=== PATIENT | female | born 1980 | race African-American/Black ===

== ENCOUNTER 2020-09-30 19:04 | Emergency (ER) | payer OTHER ==
[~2020-09-30] VITALS: Ht 149.9 cm; Wt 35.4 kg
[2020-09-30] MEDS ORDERED: DEXAMETHASONE SOD PHOSPHATE 4 MG/ML VIAL IM ONE (20:30)
--- NOTE | 2020-09-30 21:00 | NUR ---
RADIOLOGY AT BEDSIDE
[2020-09-30] MEDS ORDERED: DEXAMETHASONE SOD PHOSPHATE 10 MG/ML VIAL ONE (21:05)
[2020-09-30] MEDS ORDERED: ACETAMINOPHEN ES 500 MG TABLET ONE (21:21)
[2020-09-30] MEDS ORDERED: ONDANSETRON 4 MG TAB.RAPDIS ONE (21:21)
[2020-09-30] MEDS ORDERED: ONDANSETRON 4 MG TAB.RAPDIS SL ONE (21:30)
[2020-09-30] MEDS ORDERED: ACETAMINOPHEN 325 MG TABLET PO ONE (21:30)
--- NOTE | 2020-09-30 21:33 | NUR ---
PARVEENID SWABBED, SENT TO LAB.
--- NOTE | 2020-09-30 21:45 | NUR ---
Patient discharged to home in stable condition. Written and verbal after care instructions given. Patient verbalizes understanding of instruction and RX. RR even and unlabored. vss.
[2020-09-30 21:56] VITALS: BP 127/83
== END 2020-09-30 21:56 | disposition home or self-care (01) ==
LOC: ER 19:11
DX: J40 Bronchitis, not specified as acute or chronic (principal); R07.81 Pleurodynia; Z93.0 Tracheostomy status; Z20.828 Contact with and (suspected) exposure to other viral communicable diseases
CPT/HCPCS: 71045; 87426; 96372; 99284; C9803; J1100; Q0162

== ENCOUNTER 2020-12-09 18:14 | Emergency (ER) | payer OTHER ==
[~2020-12-09] VITALS: Ht 149.9 cm; Wt 36.3 kg
--- NOTE | 2020-12-09 18:20 | NUR ---
bib by mother, productive cough for weeks. chest pain, dull achy x 1 week. pt has a trache which is capped. vs checked. iv access started blood draw done sent to lab. seen by
[2020-12-09 19:09] LABS: BASOPHILS % (AUTO) 0.4 % (0.0-2.0); EOSINOPHILS % (AUTO) 1.1 % (0.0-6.0); HEMATOCRIT 44 % (33-45); HEMOGLOBIN 14.8 g/dL (11.5-14.8); LYMPHOCYTES # (AUTO) 1.6 /CMM (0.8-4.8); LYMPHOCYTES % (AUTO) 25.6 % (20.0-44.0); MEAN CORPUSCULAR HGB CONC 34 g/dl (31.0-36.0); MEAN CORPUSCULAR VOLUME 93 fL (82-100); MONOCYTES # (AUTO) 0.5 /CMM (0.1-1.30); MONOCYTES % (AUTO) 7.5 % (2.0-12.0); NEUTROPHILS % (AUTO) 65.4 % (43.0-81.0); PLATELET COUNT (AUTO) 284 /CMM (150-450); RED BLOOD CELL COUNT(AUTO) 4.73 MIL/uL (4.0-5.2); WHITE BLOOD COUNT (AUTO) 6.1 K/uL (4.3-11.0)
[2020-12-09] MEDS ORDERED: AZITHROMYCIN 250 MG TABLET ONE (19:14)
--- NOTE | 2020-12-09 19:16 | NUR ---
covid pcr and antigen collected and influenza collected sent to lab
--- NOTE | 2020-12-09 19:20 | NUR ---
RT AT BEDSIDE FOR TRACHEAL SUCTIONING
[2020-12-09] MEDS ORDERED: IPRATROPIUM NEB FS 0.5 MG/2.5 ML AMPUL.NEB ONE (19:25)
[2020-12-09] MEDS ORDERED: ALBUTEROL FS 2.5 MG/0.5 ML VIAL.NEB ONE (19:25)
--- NOTE | 2020-12-09 19:29 | NUR ---
urine collected sent to lab
[2020-12-09] MEDS ORDERED: AZITHROMYCIN 250 MG TABLET PO ONE (19:30)
[2020-12-09] MEDS ORDERED: ALBUTEROL FS 2.5 MG/0.5 ML VIAL.NEB NEB ONE (19:30)
[2020-12-09] MEDS ORDERED: IPRATROPIUM NEB FS 0.5 MG/2.5 ML AMPUL.NEB NEB ONE (19:30)
[2020-12-09 19:33] LABS: BILIRUBIN,URINE Negative (NEGATIVE); COLOR,URINE YELLOW (YELLOW); LEUKOCYTE ESTERASE ,URINE Large (NEGATIVE); NITRITE, URINE Negative (NEGATIVE); PROTEIN,URINE Negative (NEGATIVE); UGLUCOSE Negative (NEGATIVE); UROBILINOGEN,URINE 0.2 EU/dL (0.2)
[2020-12-09 19:34] LABS: ALANINE AMINOTRANSFERASE 18 U/L (12-78); ALBUMIN 3.9 g/dL (3.4-5.0); ALKALINE PHOSPHATASE 48 U/L (46-116); ASPARTATE AMINOTRANSFERASE 18 U/L (15-37); B-TYPE NATRIURETIC PEPTIDE 102 PG/ML (0-125); BILIRUBIN,TOTAL 0.9 mg/dL (0.2-1.0); CALCIUM, SERUM 8.6 mg/dL (8.5-10.1); CARBON DIOXIDE 28 mmol/L (21-32); CHLORIDE 102 mmol/L (98-107); CREATININE 0.7 mg/dL (0.6-1.3); GLUCOSE 66 mg/dL (74-106); POTASSIUM 3.5 mmol/L (3.5-5.1); SODIUM SERUM 137 mmol/L (136-145); UREA NITROGEN, BLOOD 11 mg/dL (7-18)
--- NOTE | 2020-12-09 19:34 | NUR ---
RT AT BEDSIDE FOR BREATHING TREATMENT
[2020-12-09 19:50] LABS: BACTERIA,URINE Few /HPF (None Seen); RBC,URINE 0-2 /HPF (0-2)
[2020-12-09 19:52] LABS: YEAST,URINE Few /HPF (None Seen)
[2020-12-09 19:54] LABS: D-DIMER < 0.19 mg/L(FEU (0.17-0.50)
[2020-12-09 20:02] LABS: C-REACTIVE PROTEIN 0.8 mg/dL (0.0-0.9); CREATINE KINASE, TOTAL 54 U/L (26-192); FERRITIN 65 ng/mL (8-388)
[2020-12-09] MEDS ORDERED: KETOROLAC TROMETHAMINE 15 MG/ML VIAL ONE (20:29)
--- NOTE | 2020-12-09 20:39 | NUR ---
MD AT BEDSIDE TO SPEAK WITH PATIENT REGARDING DISCHARGE. FAMILY MEMBER AT BEDSIDE AND PATIENT AGREES TO DISCHARGE.
[2020-12-09] MEDS ORDERED: ALBU2.5V38 NEB (20:47)
[2020-12-09] MEDS ORDERED: AZIT100S20 PO (20:49)
[2020-12-09] MEDS ORDERED: KETOROLAC TROMETHAMINE INJ 30 MG/ML VIAL IV ONE (21:00)
[2020-12-09 21:06] VITALS: BP 121/76
--- NOTE | 2020-12-09 21:06 | NUR ---
IV removed. Catheter intact and site benign. Pressure and 4x4 applied to site. No bleeding noted.
--- NOTE | 2020-12-09 21:06 | NUR ---
Patient discharged to home in stable condition. Written and verbal after care instructions given. Patient verbalizes understanding of instruction.
== END 2020-12-09 21:07 | disposition home or self-care (01) ==
LOC: ER 18:19
DX: R07.81 Pleurodynia (principal); J40 Bronchitis, not specified as acute or chronic; Z93.0 Tracheostomy status; Z20.822 Contact with and (suspected) exposure to COVID-19; R94.31 Abnormal electrocardiogram [ECG] [EKG]
CPT/HCPCS: 31720; 36415; 71046; 80053; 81001; 82550; 82728; 83605; 83615; 83880; 84145; 84484; 85025; 85378; 85385; 85730; 86140; 87086; 87106; 87426; 87804; 93005; 94640; 96374; 99285; C9803; J1885; U0003

== ENCOUNTER 2021-02-05 22:01 | Emergency (ER) | payer OTHER ==
[~2021-02-05] VITALS: Ht 149.9 cm; Wt 33.1 kg
[~2021-02-05 22:01] MED LIST: ALBU2.5V38 NEB; AZIT100S20 PO
[2021-02-05 22:08] VITALS: BP 135/98
--- NOTE | 2021-02-05 22:08 | NUR ---
BIB MOM FOR C/O MID STERNAL CP 04/27 NON- RADIATING, H/A, SOB AND COUGH SINCE AM. PT HAS A TRACH IN PLACE, ON R/A, PER MOM SHE RECEIVED A DOSE OF BREATHIG TX AT HOME FOR SOB WITH SOME HELP. PT AMBULATORY TO BED 8, WAS PLACED ON A MONITOR . VSS. AFEBRILE. WILL CONT TO MONITOR ,
[2021-02-05] MEDS ORDERED: ALBU1.257 NEB (22:44)
[2021-02-05] MEDS ORDERED: AZIT250T PO (22:44)
== END 2021-02-05 23:30 | disposition home or self-care (01) ==
LOC: ER 22:03
DX: J20.9 Acute bronchitis, unspecified (principal); Z20.822 Contact with and (suspected) exposure to COVID-19; R07.81 Pleurodynia; Z93.0 Tracheostomy status
CPT/HCPCS: 99283; C9803; U0003

== ENCOUNTER 2021-04-02 18:03 | Emergency (ER) | payer OTHER ==
[~2021-04-02] VITALS: Ht 149.9 cm; Wt 34.0 kg
[~2021-04-02 18:03] MED LIST changes: +ALBU1.257 NEB; +AZIT250T PO
--- NOTE | 2021-04-02 18:20 | NUR ---
BIBMOM C/O SOB & CP. DENIES FEVER, BODY ACHES, N/V/D. PT AAOX4, VSS. RR EVEN & UNLABORED. AWAITING EVAL BY ERMD. WILL CONT TO MONITOR.
[2021-04-02] MEDS ORDERED: ALBUTEROL FS 2.5 MG/3 ML VIAL.NEB NEB ONE (18:30)
[2021-04-02] MEDS ORDERED: AZIT250T PO (18:37)
[2021-04-02] MEDS ORDERED: ALBU2.5V38 NEB (18:37)
[2021-04-02] MEDS ORDERED: ALBUTEROL FS 2.5 MG/3 ML VIAL.NEB ONE (19:16)
--- NOTE | 2021-04-02 19:19 | NUR ---
PATIENT RECEIVING BREATHING TX AT BEDSIDE
[2021-04-02 19:57] VITALS: BP 128/68
--- NOTE | 2021-04-02 19:58 | NUR ---
Patient discharged to home in stable condition. Rx and Written and verbal after care instructions given. Patient verbalizes understanding of instruction. Patient wheeled to car with no injuires.
== END 2021-04-02 19:59 | disposition home or self-care (01) ==
LOC: ER 18:05
DX: J40 Bronchitis, not specified as acute or chronic (principal); Z93.0 Tracheostomy status; Z79.899 Other long term (current) drug therapy

== ENCOUNTER 2021-06-08 13:41 | Emergency (ER) | payer OTHER ==
[~2021-06-08] VITALS: Ht 152.4 cm; Wt 34.0 kg
--- NOTE | 2021-06-08 13:55 | NUR ---
PT BIB MOTHER C/O PRESSURE LIKE CHEST PAIN W/ SOB X 2 DAYS. PT IS TACHYCARDIC GENERAL STORE MANAGER. AFEBRILE PT IS SATTING IN LOW 90'S. GOWNED AND PLACED ON MONITOR. AWAITING MD CAMPBELL. PT IS NOT VACCINATED W/ COVID. PER MOTHER, HER NIECE HAS FLU LIKE SYMPTOMS. AWAITNG MD CAMPBELL.
--- NOTE | 2021-06-08 14:08 | NUR ---
DR TRAMMELL AT BEDSIDE FOR EVAL.
[2021-06-08] MEDS ORDERED: DEXAMETHASONE SOD PHOSPHATE 10 MG/ML VIAL IV ONE (14:30)
[2021-06-08] MEDS ORDERED: CEFTRIAXONE 1GM BAG (ER ONLY) 50 ML IV ONE ×2 (14:30→14:37)
[2021-06-08] MEDS ORDERED: AZITHROMYCIN 500 MG in IV D5W 250 ML IV ONE (14:30)
[2021-06-08] MEDS ORDERED: DEXAMETHASONE SOD PHOSPHATE 10 MG/ML VIAL ONE (14:37)
--- NOTE | 2021-06-08 14:37 | NUR ---
RADIOLOGY AT BEDSIDE FOR CHEST XRAY
[2021-06-08 14:57] LABS: BASOPHILS % (AUTO) 0.2 % (0.0-2.0); EOSINOPHILS % (AUTO) 0.3 % (0.0-6.0); HEMATOCRIT 41 % (33-45); HEMOGLOBIN 13.5 g/dL (11.5-14.8); LYMPHOCYTES # (AUTO) 0.7 K/uL (0.8-4.8); LYMPHOCYTES % (AUTO) 8.6 % (20.0-44.0); MEAN CORPUSCULAR HGB CONC 33 g/dl (31.0-36.0); MEAN CORPUSCULAR VOLUME 93 fL (82-100); MONOCYTES # (AUTO) 0.7 K/uL (0.1-1.30); MONOCYTES % (AUTO) 7.8 % (2.0-12.0); NEUTROPHILS # (AUTO) 7.2 K/uL (1.8-8.9); NEUTROPHILS % (AUTO) 83.1 % (43.0-81.0); PLATELET COUNT (AUTO) 259 K/uL (150-450); RED BLOOD CELL COUNT(AUTO) 4.39 MIL/uL (4.0-5.2); WHITE BLOOD COUNT (AUTO) 8.6 K/uL (4.3-11.0)
[2021-06-08 15:17] LABS: ALBUMIN 3.5 g/dL (3.4-5.0); BILIRUBIN,TOTAL 0.6 mg/dL (0.2-1.0); CALCIUM, SERUM 8.3 mg/dL (8.5-10.1); CREATININE 0.7 mg/dL (0.6-1.3); TOTAL PROTEIN, SERUM 7.3 g/dL (6.4-8.2)
[2021-06-08 15:22] LABS: C-REACTIVE PROTEIN 0.6 mg/dL (0.0-0.9)
[2021-06-08 15:27] LABS: D-DIMER < 0.19 mg/L(FEU (0.17-0.50)
--- NOTE | 2021-06-08 15:42 | NUR ---
PAGED [facility].
[2021-06-08 16:04] LABS: POTASSIUM 2.8 mmol/L (3.5-5.1)
[2021-06-08] MEDS ORDERED: AZIT250T13 PO (16:17)
[2021-06-08] MEDS ORDERED: POTA20TA83 PO (16:18)
--- NOTE | 2021-06-08 16:19 | NUR ---
CALLED LAB MULTIPLE TIME FOR A RAPID COVID TEST KIT.
[2021-06-08] MEDS ORDERED: POTASSIUM CHLORIDE 20 MEQ TAB.PRT.SR PO ONE ×2 (16:30→17:21)
--- NOTE | 2021-06-08 17:48 | NUR ---
Patient discharged to home in stable condition. Written and verbal after care instructions given. Patient verbalizes understanding of instruction.IV removed. Catheter intact and site benign. Pressure and 4x4 applied to site. No bleeding noted.
[2021-06-08 17:50] VITALS: BP 108/70
== END 2021-06-08 17:51 | disposition home or self-care (01) ==
LOC: ER 13:48
DX: J40 Bronchitis, not specified as acute or chronic (principal); E87.6 Hypokalemia; Z93.0 Tracheostomy status; Z20.822 Contact with and (suspected) exposure to COVID-19
CPT/HCPCS: 71045; 80053; 82550; 82728; 83605; 83615; 84145; 85025; 85378; 85385; 85730; 86140; 87040 ×2; 87426; 93005; 96365; 96375; 99285; J0456; J0696; J1100; U0003; 36415; C9803; J7060

== ENCOUNTER 2021-10-21 17:22 | Emergency (ER) | payer OTHER ==
[~2021-10-21] VITALS: Ht 149.9 cm; Wt 32.7 kg
[~2021-10-21 17:22] MED LIST changes: -ALBU1.257 NEB; -ALBU2.5V38 NEB; -AZIT100S20 PO; -AZIT250T PO; +AZIT250T13 PO; +POTA20TA83 PO
--- NOTE | 2021-10-21 17:39 | NUR ---
TO ER BED 6, BIBFAMILY C/O SORETHROAT/SOB STARTED LAST NIGHT,HAS TRACH SINCE , AAOX3, CONNECTED TO MONITOR, FAMILY AT BEDSIDE, AWAITING MD CAMPBELL
--- NOTE | 2021-10-21 17:55 | NUR ---
SALINE LOCK ESTABLISHED AND BLOOD DRAWN
[2021-10-21] MEDS ORDERED: ALBUTEROL FS 2.5 MG/3 ML VIAL.NEB NEB ONE (18:30)
[2021-10-21] MEDS ORDERED: ALBUTEROL FS 2.5 MG/3 ML VIAL.NEB ONE (18:34)
[2021-10-21 19:09] LABS: BASOPHILS % (AUTO) 0.1 % (0.0-2.0); EOSINOPHILS % (AUTO) 0.8 % (0.0-6.0); HEMATOCRIT 42 % (33-45); HEMOGLOBIN 14.1 g/dL (11.5-14.8); LYMPHOCYTES # (AUTO) 0.7 K/uL (0.8-4.8); LYMPHOCYTES % (AUTO) 5.6 % (20.0-44.0); MEAN CORPUSCULAR HGB CONC 33 g/dl (31.0-36.0); MEAN CORPUSCULAR VOLUME 93 fL (82-100); MONOCYTES # (AUTO) 0.6 K/uL (0.1-1.30); MONOCYTES % (AUTO) 4.9 % (2.0-12.0); NEUTROPHILS # (AUTO) 10.9 K/uL (1.8-8.9); NEUTROPHILS % (AUTO) 88.6 % (43.0-81.0); PLATELET COUNT (AUTO) 283 K/uL (150-450); RED BLOOD CELL COUNT(AUTO) 4.55 MIL/uL (4.0-5.2); WHITE BLOOD COUNT (AUTO) 12.4 K/uL (4.3-11.0)
[2021-10-21 19:12] LABS: CALCIUM, SERUM 8.4 mg/dL (8.5-10.1); CREATININE 0.8 mg/dL (0.6-1.3); POTASSIUM 3.7 mmol/L (3.5-5.1)
[2021-10-21] MEDS ORDERED: DEXAMETHASONE SOD PHOSPHATE 4 MG in IV D5W 50 ML IV ONE (20:00)
[2021-10-21] MEDS ORDERED: IV NS 0.9% 1,000 ML BAG IV ONE (20:00)
[2021-10-21] MEDS ORDERED: CEFTRIAXONE 1 G in IV D5W 50 ML IV ONE (20:00)
[2021-10-21] MEDS ORDERED: CEFTRIAXONE 1GM BAG (ER ONLY) 50 ML IV ONE (20:01)
[2021-10-21] MEDS ORDERED: DEXAMETHASONE SOD PHOSPHATE 4 MG/ML VIAL ONE (20:02)
--- NOTE | 2021-10-21 20:35 | NUR ---
COVID ANTIGEN COLLECTED AND SENT TO LAB
[2021-10-21] MEDS ORDERED: AMOX400S5 PO (22:09)
[2021-10-21 22:43] VITALS: BP 95/57
--- NOTE | 2021-10-21 23:45 | NUR ---
Patient discharged to home in stable condition. Written and verbal after care instructions given. Patient verbalizes understanding of instruction. DC VIA W/C.
[2021-10-22] MEDS ORDERED: ALBU0.633 NEB (00:06)
== END 2021-10-21 22:45 | disposition home or self-care (01) ==
LOC: ER 17:27
DX: J02.9 Acute pharyngitis, unspecified (principal); Z20.822 Contact with and (suspected) exposure to COVID-19; Z93.0 Tracheostomy status
CPT/HCPCS: 36415; 71045; 80048; 85025; 87426; 94640; 96365; 96375; 99285; C9803; J0696; J1100; J7030; J7060

== ENCOUNTER 2022-01-24 10:56 | Emergency (ER) | payer OTHER ==
[~2022-01-24] VITALS: Ht 149.9 cm; Wt 33.1 kg
[~2022-01-24 10:56] MED LIST changes: +ALBU0.633 NEB; +AMOX400S5 PO
--- NOTE | 2022-01-24 11:03 | NUR ---
DR ALCAZAR AT BEDSIDE
--- NOTE | 2022-01-24 11:04 | NUR ---
BIBMOTHER FOR C/O PRESSURE LIKE, NON-RADIATING CP AND SOB STARTED 0900. THE PATIENT HAS TRACHEOSTOMY. OXYGEN SAT IN ROOM AIR 99%. ATTACHED TO THE MONITOR. WARM BLANKET PROVIDED FOR COMFORT. WILL CONTINUE TO MONITOR THE PATIENT.
[2022-01-24] MEDS ORDERED: ALBUTEROL FS 2.5 MG/3 ML VIAL.NEB CONTNEB ONE (11:30)
--- NOTE | 2022-01-24 11:35 | NUR ---
IV LINE IS ESTABLISHED, BLOOD SPECIMEN COLLECTED AND SENT TO THE LAB. THE LINE IS SALINE LOCKED.
[2022-01-24] MEDS ORDERED: ALBUTEROL FS 2.5 MG/3 ML VIAL.NEB ONE (11:43)
--- NOTE | 2022-01-24 11:46 | NUR ---
MOTHER AT THE BEDSIDE
--- NOTE | 2022-01-24 11:46 | NUR ---
RT AT THE BEDSIDE
[2022-01-24 11:49] LABS: BASOPHILS % (AUTO) 0.3 % (0.0-2.0); EOSINOPHILS % (AUTO) 0.5 % (0.0-6.0); HEMATOCRIT 41 % (33-45); HEMOGLOBIN 13.6 g/dL (11.5-14.8); LYMPHOCYTES # (AUTO) 0.3 K/uL (0.8-4.8); LYMPHOCYTES % (AUTO) 3.6 % (20.0-44.0); MEAN CORPUSCULAR HGB CONC 34 g/dl (31.0-36.0); MEAN CORPUSCULAR VOLUME 91 fL (82-100); MONOCYTES # (AUTO) 0.5 K/uL (0.1-1.30); MONOCYTES % (AUTO) 5.9 % (2.0-12.0); NEUTROPHILS % (AUTO) 89.7 % (43.0-81.0); PLATELET COUNT (AUTO) 270 K/uL (150-450); RED BLOOD CELL COUNT(AUTO) 4.47 MIL/uL (4.0-5.2); WHITE BLOOD COUNT (AUTO) 7.8 K/uL (4.3-11.0)
--- NOTE | 2022-01-24 11:52 | NUR ---
COVID ANTIGEN SWAB DONE AND SENT TO THE LAB
[2022-01-24] MEDS ORDERED: ALBU0.633 IH ×3 (11:55→14:51)
[2022-01-24 12:17] LABS: ALANINE AMINOTRANSFERASE 16 U/L (12-78); ALBUMIN 3.9 g/dL (3.4-5.0); ALKALINE PHOSPHATASE 53 U/L (46-116); ASPARTATE AMINOTRANSFERASE 13 U/L (15-37); BILIRUBIN,DIRECT 0.2 mg/dL (0.0-0.2); BILIRUBIN,TOTAL 1.1 mg/dL (0.2-1.0); CALCIUM, SERUM 8.8 mg/dL (8.5-10.1); CARBON DIOXIDE 27 mmol/L (21-32); CHLORIDE 101 mmol/L (98-107); CREATININE 0.6 mg/dL (0.6-1.3); GLUCOSE 124 mg/dL (74-106); POTASSIUM 3.6 mmol/L (3.5-5.1); SODIUM SERUM 133 mmol/L (136-145); TOTAL PROTEIN, SERUM 7.9 g/dL (6.4-8.2); UREA NITROGEN, BLOOD 10 mg/dL (7-18)
--- NOTE | 2022-01-24 12:33 | NUR ---
DR. GARCIA SPEAKING WITH DR. ALCAZAR.
--- NOTE | 2022-01-24 13:15 | NUR ---
VIKI [phone] CM CALLED GOT AUTH #[id number]
--- NOTE | 2022-01-24 13:21 | NUR ---
PER AMERICAN INDIAN POLICY SPECIALIST VIKI THE PATIENT IS AUTH TO STAY FOR OB #[id number] [employer]DI[employer] POLICY SPECIALIST VIKI TEL [phone]
--- NOTE | 2022-01-24 14:21 | NUR ---
CALLED STEPHANIE FOR READ.
[2022-01-24] MEDS ORDERED: PRED15SO6 PO (14:51)
--- NOTE | 2022-01-24 15:08 | NUR ---
The patient is alert and oriented x4. In room air and denies SOB. Respiration regular and unlabored. Denies pain. IV removed. Catheter intact and site benign. Pressure and 4x4 applied to site. No bleeding noted.Patient discharged to home in stable condition. Written and verbal after care instructions given. Patient verbalizes understanding of instruction.
[2022-01-24 15:09] VITALS: BP 107/63
== END 2022-01-24 15:10 | disposition home or self-care (01) ==
LOC: ER 11:04
DX: J45.901 Unspecified asthma with (acute) exacerbation (principal); R07.89 Other chest pain; Z93.0 Tracheostomy status; I51.7 Cardiomegaly; Z20.822 Contact with and (suspected) exposure to COVID-19
CPT/HCPCS: 36415; 71045; 80048; 80076; 83605; 83880; 84484 ×2; 85025; 87040 ×2; 87426; 93005; 94640; 99285; C9803

== ENCOUNTER 2022-06-05 13:35 | Inpatient (IN) | payer OTHER ==
[~2022-06-05] VITALS: Ht 149.9 cm; Wt 34.9 kg
[~2022-06-05 13:35] MED LIST changes: +ALBU0.633 IH; -ALBU0.633 NEB; -AMOX400S5 PO; -AZIT250T13 PO; -POTA20TA83 PO; +PRED15SO6 PO
--- NOTE | 2022-06-05 14:05 | NUR ---
RECEIVED PT 42 YRS FEMALE came from home accompny by mother c/o sob and chest pain satrted this morning distress
--- NOTE | 2022-06-05 14:10 | NUR ---
PT HAD TRACH SINCE PT BLOCK
[2022-06-05] MEDS ORDERED: ONDANSETRON HCL/PF 4 MG/2 ML VIAL ONE ×2 (14:27→17:56)
[2022-06-05] MEDS ORDERED: ONDANSETRON HCL/PF - ER 4 MG/2 ML VIAL IV ONE (14:30)
[2022-06-05] MEDS ORDERED: IV NS 0.9% 500 ML BAG IV ONE (14:30)
[2022-06-05] MEDS ORDERED: IPRATROPIUM NEB FS 0.5 MG/2.5 ML AMPUL.NEB NEB ONE (14:30)
[2022-06-05] MEDS ORDERED: ALBUTEROL FS 2.5 MG/3 ML VIAL.NEB CONTNEB ONE (14:30)
[2022-06-05] MEDS ORDERED: methylPREDNISolone SOD SUCC 125 MG/2ML VIAL IV ONE (14:30)
--- NOTE | 2022-06-05 14:30 | NUR ---
blood drow by lab tachh
--- NOTE | 2022-06-05 14:33 | NUR ---
RAPID COVID AND RAPID STREP COLLECTED AND SENT
[2022-06-05 14:35] LABS: BASOPHILS % (AUTO) 0.1 % (0.0-2.0); EOSINOPHILS % (AUTO) 0.3 % (0.0-6.0); HEMATOCRIT 40 % (33-45); HEMOGLOBIN 13.4 g/dL (11.5-14.8); LYMPHOCYTES # (AUTO) 0.2 K/uL (0.8-4.8); LYMPHOCYTES % (AUTO) 1.9 % (20.0-44.0); MEAN CORPUSCULAR HGB CONC 33 g/dl (31.0-36.0); MEAN CORPUSCULAR VOLUME 91 fL (82-100); MONOCYTES # (AUTO) 0.3 K/uL (0.1-1.30); MONOCYTES % (AUTO) 3.4 % (2.0-12.0); NEUTROPHILS # (AUTO) 8.1 K/uL (1.8-8.9); NEUTROPHILS % (AUTO) 94.3 % (43.0-81.0); PLATELET COUNT (AUTO) 227 K/uL (150-450); RED BLOOD CELL COUNT(AUTO) 4.43 MIL/uL (4.0-5.2); WHITE BLOOD COUNT (AUTO) 8.6 K/uL (4.3-11.0)
--- NOTE | 2022-06-05 14:40 | NUR ---
RT AT BEDSIDE
[2022-06-05] MEDS ORDERED: methylPREDNISolone SOD SUCC 125 MG/2ML VIAL ONE (14:41)
[2022-06-05] MEDS ORDERED: IPRATROPIUM NEB FS 0.5 MG/2.5 ML AMPUL.NEB ONE (14:49)
[2022-06-05] MEDS ORDERED: ALBUTEROL FS 2.5 MG/3 ML VIAL.NEB ONE (14:49)
[2022-06-05 14:51] LABS: CALCIUM, SERUM 8.5 mg/dL (8.5-10.1); CARBON DIOXIDE 26 mmol/L (21-32); CHLORIDE 100 mmol/L (98-107); CREATININE 0.7 mg/dL (0.6-1.3); GLUCOSE 137 mg/dL (74-106); POTASSIUM 3.5 mmol/L (3.5-5.1); SODIUM SERUM 134 mmol/L (136-145); UREA NITROGEN, BLOOD 12 mg/dL (7-18)
[2022-06-05] MEDS ORDERED: MORPHINE SULFATE INJ 2 MG/ML DISP.SYRIN IV ONE ×2 (15:30→19:00)
[2022-06-05] MEDS ORDERED: MORPHINE SULFATE INJ 2 MG/ML DISP.SYRIN ONE (15:36)
--- NOTE | 2022-06-05 15:41 | NUR ---
PT C/O 06/27 CHEST PAIN, MEDICATED ORDERED. SEE EMAR. WILL CONTINUE TO MONITOR.
[2022-06-05] MEDS ORDERED: IV NS 0.9% 1,000 ML BAG IV ONE (16:30)
--- NOTE | 2022-06-05 16:54 | NUR ---
PT ASLEEPY NI SOB D[place]ESIE CHEST PAIN
[2022-06-05] MEDS ORDERED: ONDANSETRON HCL/PF 4 MG/2 ML VIAL IV ONE (18:00)
[2022-06-05] MEDS ORDERED: IV NS 0.9% 250 ML IV ONE (18:39)
[2022-06-05] MEDS ORDERED: IOHEXOL-350 100 ML VIAL IV ONE (18:39)
[2022-06-05] MEDS ORDERED: CT SWABBABLE VALVE TRANS SET 1 EA INFUS.SET MC ONE (18:39)
--- NOTE | 2022-06-05 18:45 | NUR ---
DR. LEPE NOTEFY ABOUT HR 116-120B/MIN AND CHEST PAIN / ORDER WAS GIVEN
[2022-06-05] MEDS ORDERED: MORPHINE SULFATE INJ 4 MG/ML DISP.SYRIN ONE (18:46)
--- NOTE | 2022-06-05 19:00 | NUR ---
TO CTA VIA REYNALDO
--- NOTE | 2022-06-05 19:20 | NUR ---
HAND OFF TO ARLEEN GONCALVES
--- NOTE | 2022-06-05 19:30 | NUR ---
MRSA SWAB COLLECTED AND SENT TO LAB. PATIENT'S BELONGINGS LIST DONE.
--- NOTE | 2022-06-05 20:42 | NUR ---
PAGED EPIC CLOTH PATTERN MAKER
--- NOTE | 2022-06-05 20:44 | NUR ---
BED 320
--- NOTE | 2022-06-05 21:53 | NUR ---
ROOM 329. REPORT GIVEN TO RONNY RolleW RN FOR DWAYNE
--- NOTE | 2022-06-05 22:25 | NUR ---
PT TRANSFERRED TO 3W 329 VIA ACLS PROTOCOL. ALL BELONGINGS WITH PT. PT TOLERATED TRANSFER WELL. KYLE MOTHER AWARE
[2022-06-05 22:30] VITALS: BP 124/72
--- NOTE | 2022-06-05 23:00 | NUR ---
CUSTOMER SALES CONSULTANT ADMITTING NOTES: RECEIVED PATIENT VIA GURNEY FROM ER, NO COMPLAIN OF PAIN AND DISCOMFORT AT THIS TIME, PATIENT ON TRACH SINCE ON O2 INHALATION AT 3LPM SATURATING WELL, PLACE ON BED COMFORTABLY, ORIENTED TO PLACE, PATIENT WAS ACCOMPANIED BY MOTHER, ARMED GUARD AND NURSE FEEDER WORKER POWER UNIT OPERATOR. WAS AWARE, SKIN ASSESSMENT DONE, NO SKIN ISSUES WAS OBSERVED, INVENTORY DONE AND SIGNED. PATIENT ON TELE MONITOR SR-85, PATIENT KEPT CLEAN AND DRY ALL NEEDS MET WILL CONTINUE TO MONITOR.
[2022-06-05] MEDS ORDERED: IV NS 0.9% 1,000 ML IV PRN (23:30)
[2022-06-05] MEDS ORDERED: ONDANSETRON HCL/PF 4 MG/2 ML VIAL IVP PRN (23:30)
[2022-06-05] MEDS ORDERED: METOCLOPRAMIDE HCL 10 MG/2 ML VIAL IV PRN (23:30)
[2022-06-05] MEDS ORDERED: Z GUARD REMEDY 4 OZ OINT TP PRN (23:30)
[2022-06-05] MEDS ORDERED: ACETAMINOPHEN 325 MG TABLET PO PRN (23:30)
[2022-06-05] MEDS ORDERED: MAG HYDROX/AL HYDROX/SIMETH 30 ML UDC PO PRN (23:30)
[2022-06-05] MEDS: MORPHINE SULFATE INJ 2 MG/ML DISP.SYRIN IV PRN (23:58)
[2022-06-06] MEDS: LEVALBUTEROL HCL NEB 1.25 MG/0.5 ML VIAL.NEB NEB SCH ×3 (02:11→14:06)
[2022-06-06] MEDS: IPRATROPIUM NEB FS 0.5 MG/2.5 ML AMPUL.NEB NEB SCH ×3 (02:11→14:06)
[2022-06-06 04:00] VITALS: BP_SYST 118; BP_SYST 121; BP_DIAS 60; BP_DIAS 67
[2022-06-06] MEDS: MORPHINE SULFATE INJ 2 MG/ML DISP.SYRIN IV PRN (04:03)
[2022-06-06 04:20] VITALS: BP 118/60
[2022-06-06 05:00] VITALS: BP 111/65
--- NOTE | 2022-06-06 05:20 | NUR ---
RN NOTES: PATIENT WAS BECOMING MORE ANXIOUS WITH HAVING SHORTNESS OF BREATH AFTER DOSE OF REGLAN 10MG SLOW IVP, PATIENT WAS GIVEN PRN MORPHINE STILL PATIENT COMPLAIN OF HEADACHE, CALLED COOK SPECIALTY FOREIGN FOOD SAENZ ABLE TO TALK TO FAMILY AND ORDER TO DISCONTINUE REGLAN 10MG PRN Q6H, AND GIVE BENADRYL 25MG IVP ONE TIME, ALSO ORDER ATIVAN 0.5MG Q6H PRN FOR ANXIETY/ AND NAUSEA, NOTED AND CARRY OUT,
[2022-06-06] MEDS ORDERED: diphenhydrAMINE HCL 50 MG/ML VIAL IV ONE (05:30)
[2022-06-06] MEDS ORDERED: LORAZEPAM INJ 2 MG/ML VIAL IV PRN (05:30)
[2022-06-06] MEDS: methylPREDNISolone SOD SUCC 125 MG/2ML VIAL IV SCH ×2 (05:39→13:30)
--- NOTE | 2022-06-06 06:20 | NUR ---
MINERAL ENGINEER CLOSING NOTES: PATIENT SLEEP IN BED COMFORTABLY, BED IN LOW POSITION CALL LIGHTS WITHIN REACH, NO COMPLAIN OF PAIN AND DISCOMFORT AT THIS TIME, ON O2 INHALATION AT 3LPM SATURATING WELL, ON TRACH SINCE , WITH IV LINE AT RFA#20 WITH ONGOING NSS@75ML/HR INFUSING WELL, PATIENT WAS ACCOMPANIED BY FAMILY, ON TELE MONITOR, SR-90, PATIENT KEPT CLEAN AND DRY ALL NEEDS MET ENDORSE TO INCOMING SHIFT
--- NOTE | 2022-06-06 07:30 | NUR ---
BRAND DEVELOPMENT MANAGER NOTES PT IN BED, ASLEEP, EASY TO AROUSE, ALERT AND ORIENTED, NO COMPLAINT AT THIS TIME, MOM AT BEDSIDE, CALL LIGHT WITHIN REACH, NEEDS ATTENED.
[2022-06-06 08:04] LABS: BASOPHILS % (AUTO) 0.1 % (0.0-2.0); HEMATOCRIT 38 % (33-45); HEMOGLOBIN 12.4 g/dL (11.5-14.8); LYMPHOCYTES # (AUTO) 0.4 K/uL (0.8-4.8); LYMPHOCYTES % (AUTO) 3.3 % (20.0-44.0); MEAN CORPUSCULAR HGB CONC 32 g/dl (31.0-36.0); MEAN CORPUSCULAR VOLUME 92 fL (82-100); MONOCYTES # (AUTO) 0.7 K/uL (0.1-1.30); MONOCYTES % (AUTO) 6.2 % (2.0-12.0); NEUTROPHILS % (AUTO) 90.4 % (43.0-81.0); PLATELET COUNT (AUTO) 228 K/uL (150-450); RED BLOOD CELL COUNT(AUTO) 4.17 MIL/uL (4.0-5.2); WHITE BLOOD COUNT (AUTO) 11.1 K/uL (4.3-11.0)
[2022-06-06 08:37] LABS: CALCIUM, SERUM 8.3 mg/dL (8.5-10.1); CREATININE 0.6 mg/dL (0.6-1.3); MAGNESIUM 2.3 mg/dL (1.8-2.4); POTASSIUM 3.9 mmol/L (3.5-5.1)
[2022-06-06] MEDS ORDERED: PANTOPRAZOLE 40 MG VIAL IV SCH (09:00)
--- NOTE | 2022-06-06 11:13 | NUR ---
OPTOMETRIST/PRACTICE OWNER NOTES PT SEEN AND EXAMINED BY DR. ZAVALA, PLAN OF CARE DISCUSSED WITH PT AND MOM, VERBALIZED UNDERSTANDING.
--- NOTE | 2022-06-06 16:09 | NUR ---
APPLICATION INTEGRATION ENGINEER NOTES PT IN BED, AWAKE, ALERT AND ORIENTED, NO COMPLAINT AT THIS TIME, ON O2 AT 1LPM VIA TRACH SITE, O2 SAT OF 95%, NOT IN DISTRESS, PT ABLE TO WALK A SHORT DISTANCE ALONG THE HALLWAY ASSISTED BY 2 FACIALIST'S, PT SEEN BY DR. ZAVALA, PLAN OF CARE DISCUSSED WITH PT AND PT'S MOM, PT'S MOM STATES THAT SHE WANTS PT TO BE DISCHARGED TODAY, DR. ZAVALA MADE AWARE AND SAID THAT SHE IS NOT CLEARING PT FOR DISCHARGE AND IT WILL NOT BE SAFE, AND THAT IT GOING TO BE LEAVING AGAINTS MEDICAL ADVICE, PT'S MOM INFORMED, EXPLAINED THE RISKS AND BENEFITS, EXPLAINED TO NEED FOR PATIENT TO STAY AT THE HOSPITAL, CHARGE NURSE DESI SPOKE WITH PT'S MOM WELL BUT STILL DECIDED ON LEAVING, INSTRUCTIONS GIVEN ON FOLLOWING UP WITH PT'S PRIMARY CARE PHYSICIAN AND TO GO TO THE NEAREST E.R. IN CASE OF EMERGENCY, ASSISTED TO HOSPITAL LOBBY VIA WHEELCHAIR BY FACIALIST, MASK PROVIDED FOR PT, PT SEEN HOLDING HER CELLPHONE, LEFT IN STABLE CONDITION, NURSING INGOT BUGGY OPERATOR AND DR. ZAVALA INFORMED.
== END 2022-06-06 16:21 | disposition left against medical advice (07) | DRG 254 ==
LOC: ER 13:48 → TELE 21:21
PROVIDERS: ADMIT Nurse Practitioner Family; ATTEND Nurse Practitioner Family
DX: K44.9 Diaphragmatic hernia without obstruction or gangrene (principal); J96.01 Acute respiratory failure with hypoxia; J45.901 Unspecified asthma with (acute) exacerbation; E87.1 Hypo-osmolality and hyponatremia; Z93.0 Tracheostomy status; R11.2 Nausea with vomiting, unspecified; Z20.822 Contact with and (suspected) exposure to COVID-19; R73.9 Hyperglycemia, unspecified; J98.9 Respiratory disorder, unspecified
CPT/HCPCS: 31720; 36415; 71045-TC; 80048-TC; 83605-TC; 83735-TC; 84484-TC; 85025-TC; 85378-TC; 86403-TC; 87040-TC; 87070-TC; 87081-TC; 93307-TC; 94799-TC; C9113; C9803; G0378; J1200; J2270; J2405; J2765; J2930; J7030; J7040; J7050; Q9967